=== PATIENT | female | born 1965 | race Hispanic/Latino ===

== ENCOUNTER 2022-08-19 11:12 | Emergency (ER) | payer SELFPAY ==
[2022-08-19] MEDS ORDERED: Iopamidol 370 76% 100 ML VIAL FS ONE (11:13)
[2022-08-19] MEDS ORDERED: Morphine 4 MG/ML VIAL ONE (11:53)
[2022-08-19] MEDS ORDERED: Ondansetron PF 4 MG/2 ML Vial ONE (11:53)
[2022-08-19 11:57] LABS: Hemoglobin 13.2 g/dL (12.0-16.0); Mean Corpuscular HGB CONC 32.6 g/dL (32.0-36.0); Mean Corpuscular Hemoglobin 28.2 pg (27.0-31.0); Mean Corpuscular Volume 86.7 fL (78.0-98.0); Mean Platelet Volume 6.8 fL (7.4-10.4); Platelet Count 499 thou/uL (130-400); RBC Distribution Width 13.9 % (11.5-14.5); Red Blood Cell (RBC) Count 4.67 mill/uL (4.20-5.40); White Blood Cell (WBC) Count 21.1 thou/uL (4.8-10.8)
[2022-08-19 12:06] LABS: BHCG - Serum Negative (NEGATIVE); Pregs Control Background? CLEAR/WHITE (CLR/WHITE); Pregs Control Bar Appear? YES (CONTROL BAR)
[2022-08-19 12:09] LABS: ALT (SGPT) 33 U/L (8-55); AST (SGOT) 26 U/L (5-34); Albumin 4.2 g/dL (3.5-5.0); Alkaline Phosphatase 150 U/L (40-110); Anion Gap 12 mmol/L (10-20); BUN (Urea Nitrogen) 9 mg/dL (9.8-20.1); Bilirubin, Total 1.1 mg/dL (0.2-1.2); Calc. Creatinine Clearance 0 mL/min (70-130); Calcium 9.6 mg/dL (7.8-10.44); Carbon Dioxide 26 mmol/L (22-29); Chloride 102 mmol/L (98-107); Estimated GFR 72; Globulin 4.4 g/dL (2.4-3.5); Glucose 137 mg/dL (70-105); Lipase 15 U/L (8-78); Potassium 3.6 mmol/L (3.5-5.1); Protein, Total 8.6 g/dL (6.0-8.3); Sodium 136 mmol/L (136-145)
[2022-08-19 12:21] LABS: Bilirubin Small (Negative); Blood, Urine Moderate (Negative); Glucose, Urine (Dipstick) Negative (Negative); Ketone, Urine 15 mg/dL (Negative); Leukocyte Trace (Negative); Nitrite Negative (Negative); Protein, Urine (Dipstick) > or equal to 300 mg/dL (Neg-Trace); Urobilinogen > or = 8.0 mg/dL (Less than 2)
[2022-08-19 12:24] LABS: Band 6 % (5-11); Lymphocytes 11 % (21-51); MDiff Complete? YES; Monocytes 8 % (0-10); Neutrophil 75 % (42-75); Platelet Morphology Comment Appears Increased; RBC Morphology Normal
[2022-08-19 12:30] LABS: Clarity Hazy (Clear)
[2022-08-19 12:31] LABS: Bacteria/HPF 1+ HPF (None Seen); Squamous Epithelial 0-3 HPF (0-3); Yeast-Budding 1+ HPF (None Seen)
[2022-08-19 12:32] LABS: Other Microscopic Description C&S SET UP
[2022-08-19] MEDS ORDERED: Piperacillin/Tazobactam 4.5 GM VIAL ONE (13:15)
[2022-08-19] MEDS ORDERED: Sodium Chloride 0.9% 100 ML ONE (13:15)
[2022-08-19 14:33] LABS: SARS-CoV-2 NAA Rapid Test Not Detected (NotDetected)
== END 2022-08-19 13:45 | disposition short-term general hospital (02) ==
LOC: BURERS 11:12
DX: K35.80 Unspecified acute appendicitis (principal)
CPT/HCPCS: 36415; 74177; 80053; 81003; 81015; 83605; 83690; 84484; 84703; 85025; 87040; 87086; 93005; 96374; 96375; J2270; J2405; J2543; J3490; Q9967; U0002

== ENCOUNTER 2022-09-01 17:54 | Emergency (ER) | payer SELFPAY ==
[2022-09-01 19:23] LABS: #Basophils 0.1 thou/uL (0.0-0.2); #Eosinphils 0.1 thou/uL (0.0-0.7); #Lymphocytes 3.9 thou/uL (1.20-3.40); #Monocytes 0.9 thou/uL (0.11-0.59); #Neutrophils 9.2 thou/uL (1.40-6.50); %Basophils 0.7 % (0.0-1.0); %Eosinophils 0.8 % (0.0-10.0); %Lymphocytes 27.2 % (21.0-51.0); %Monocytes 6.6 % (0.0-10.0); %Neutrophils 64.7 % (42.0-75.0); Hemoglobin 10.2 g/dL (12.0-16.0); Mean Corpuscular HGB CONC 31.5 g/dL (32.0-36.0); Mean Corpuscular Hemoglobin 27.4 pg (27.0-31.0); Mean Corpuscular Volume 87.2 fL (78.0-98.0); Mean Platelet Volume 7.1 fL (7.4-10.4); Platelet Count 692 thou/uL (130-400); RBC Distribution Width 13.3 % (11.5-14.5); Red Blood Cell (RBC) Count 3.72 mill/uL (4.20-5.40); White Blood Cell (WBC) Count 14.2 thou/uL (4.8-10.8)
[2022-09-01 19:26] LABS: ALT (SGPT) 42 U/L (8-55); AST (SGOT) 31 U/L (5-34); Albumin 3.4 g/dL (3.5-5.0); Alkaline Phosphatase 214 U/L (40-110); Anion Gap 16 mmol/L (10-20); BUN (Urea Nitrogen) 11 mg/dL (9.8-20.1); Bilirubin, Total 0.6 mg/dL (0.2-1.2); Calc. Creatinine Clearance 0 mL/min (70-130); Calcium 9.1 mg/dL (7.8-10.44); Carbon Dioxide 22 mmol/L (22-29); Chloride 100 mmol/L (98-107); Estimated GFR 96; Globulin 4.9 g/dL (2.4-3.5); Glucose 97 mg/dL (70-105); Protein, Total 8.3 g/dL (6.0-8.3); Sodium 134 mmol/L (136-145)
[2022-09-01 19:27] LABS: INR-International Normal Ratio 1.1
[2022-09-01 19:28] LABS: PTT 31.6 sec (22.9-36.1)
[2022-09-01 19:49] LABS: D-Dimer Test Greater than 20.00 *mcg/mL (0.27-0.43)
== END 2022-09-01 20:00 | disposition short-term general hospital (02) ==
LOC: BURERS 17:54
DX: M79.662 Pain in left lower leg (principal); M79.661 Pain in right lower leg
CPT/HCPCS: 36415; 80053; 85025; 85379; 85610; 85730; 99284

== ENCOUNTER 2023-01-05 08:50 | Outpatient (CLI) | payer OTHER ==
[2023-01-05] MEDS ORDERED: Iopamidol 370 76% 100 ML VIAL ONE (17:04)
== END 2023-01-05 08:51 | disposition home or self-care (01) ==
LOC: BURCT 08:50
PROVIDERS: ATTEND Family Medicine
DX: K57.92 Diverticulitis of intestine, part unspecified, without perforation or abscess without bleeding (principal); K42.9 Umbilical hernia without obstruction or gangrene; K80.20 Calculus of gallbladder without cholecystitis without obstruction
CPT/HCPCS: 74177; Q9967